=== PATIENT | male | born 1990 | race Caucasian/White ===

== ENCOUNTER 2023-03-06 16:40 | Emergency (ER) | payer MEDICAID ==
[2023-03-06 17:53] LABS: BASOPHILS ABSOLUTE AUTO 0.06 K/uL (0.00-0.10); BASOPHILS PERCENT AUTO 0.8 % (0.1-1.3); EOSINOPHILS ABSOLUTE AUTO 0.35 K/uL (0.00-0.40); EOSINOPHILS PERCENT AUTO 4.9 % (0.0-5.4); HEMATOCRIT 46.8 % (38.4-49.7); HEMOGLOBIN 16.7 g/dL (12.9-16.9); IMMATURE GRAN PERCENT AUTO 0.1 % (0.0-0.7); LYMPHOCYTES ABSOLUTE AUTO 3.36 K/uL (0.8-3.3); LYMPHOCYTES PERCENT AUTO 47.2 % (11.4-47.7); MEAN CORPUSCULAR HEMOGLOBIN 31.9 pg (31.6-35.5); MEAN CORPUSCULAR HGB CONC 35.7 g/dL (31.6-35.5); MEAN CORPUSCULAR VOLUME 89.5 fL (81.4-99.0); MONOCYTES ABSOLUTE AUTO 0.62 K/uL (0.20-0.90); MONOCYTES PERCENT AUTO 8.7 % (3.3-12.6); NEUTROPHILS ABSOLUTE AUTO 2.72 K/uL (1.0-7.6); NEUTROPHILS PERCENT AUTO 38.3 % (40.0-78.1); PLATELET COUNT,PLT 179 K/uL (130-375); RED BLOOD CELL COUNT 5.23 M/uL (4.14-5.76); WHITE BLOOD CELL COUNT,WBC 7.1 K/uL (3.2-11.0)
[2023-03-06 17:55] LABS: IMMATURE GRAN ABSOLUTE AUTO 0.01 K/uL (0.00-0.23)
[2023-03-06 18:13] LABS: ALANINE AMINOTRANSFERASE,ALT 72 U/L (12-78); ALKALINE PHOSPHATASE 52 U/L (46-116); ANION GAP 9.2 mmol/L (5.0-14.0); ASPARTATE AMNIOTRANSFERASE,AST 48 U/L (15-37); BILIRUBIN TOTAL 0.6 mg/dL (0.2-1.0); BLOOD UREA NITROGEN,BUN 16 mg/dL (7-18); CALCIUM 9.1 mg/dL (8.5-10.1); CARBON DIOXIDE,CO2 31 mmol/L (21-32); CHLORIDE,CL 101 mmol/L (100-108); ESTIMATED GFR 103 mL/min (>60); GLUCOSE RANDOM 92 mg/dL (74-106); SODIUM,NA 141 mmol/L (140-148)
[2023-03-06] MEDS: Sodium Chloride 0.9% 80 ML IV SCH (18:29)
[2023-03-06] MEDS: Sodium Chloride 0.9% 10 ML Syringe FLUSH ONE (18:29)
[2023-03-06] MEDS: Iopamidol 612 MG/ML 100 ML Bottle IV SCH (18:29)
[2023-03-06 18:41] LABS: APPEARANCE,URINE CLEAR (CLEAR); BILIRUBIN,URINE NEGATIVE (NEGATIVE); COLOR,URINE YELLOW (YELLOW); GLUCOSE,URINE NEGATIVE (NEGATIVE); KETONES,URINE TRACE mg/dL (NEGATIVE); LEUKOCYTE ESTERASE,URINE NEGATIVE (NEGATIVE); NITRITE,URINE NEGATIVE (NEGATIVE); OCCULT BLOOD,URINE NEGATIVE (NEGATIVE); PH,URINE 6.5 (5.0-8.0); PROTEIN,URINE NEGATIVE (NEGATIVE)
[2023-03-06 18:47] LABS: AMORPHOUS SEDIMENT,URINE NOT SEEN; BACTERIA,URINE NOT SEEN; EPITHELIAL CELLS,URINE RARE; MUCUS,URINE FEW; RBC,URINE 0-5 (0-5); WBC,URINE 0-5 (0-5)
[2023-03-06 18:48] LABS: AMPHETAMINES SCREEN, URINE NEGATIVE (NEGATIVE); BARBITURATE SCREEN,URINE NEGATIVE (NEGATIVE); BENZODIAZEPINES SCREEN,URINE NEGATIVE (NEGATIVE); METHADONE SCREEN, URINE NEGATIVE (NEGATIVE); METHAMPHETAMINES SCREEN, URINE NEGATIVE (NEGATIVE); OXYCODONE SCREEN,URINE NEGATIVE (NEGATIVE); PROPOXYPHENE SCREEN,URINE NEGATIVE (NEGATIVE); THC SCREEN,URINE 50 NG/ML PRESUMPTIVE POSITIVE (NEGATIVE)
[2023-03-06] MEDS: Amoxicillin/Clavulanate K 875-125 MG Tab PO ONE (19:38)
== END 2023-03-06 19:50 | disposition home or self-care (01) ==
LOC: JP.ED 16:40
DX: R10.9 Unspecified abdominal pain (principal); F17.210 Nicotine dependence, cigarettes, uncomplicated
CPT/HCPCS: 36415; 74177; 80053; 80305; 80307; 81001; 83605; 83690; 85025; 99284; A9270; J3490; Q9967

== ENCOUNTER 2023-03-07 09:40 | Day surgery (SDC) | payer MEDICAID ==
[2023-03-07] MEDS: Sodium Chloride 0.9% 1,000 ML IV SCH (10:43)
[2023-03-07] MEDS ORDERED: Glycopyrrolate 0.2 MG/ML 5 ML MDV ONE (12:02)
[2023-03-07] MEDS ORDERED: Ondansetron 4 MG/2 ML SDV ONE (12:02)
[2023-03-07] MEDS ORDERED: Rocuronium 50 MG/5 ML Vial ONE (12:02)
[2023-03-07] MEDS ORDERED: Propofol 200 MG/20 ML SDV ONE (12:02)
[2023-03-07] MEDS ORDERED: Succinylcholine 200 MG/10 ML MDV ONE (12:02)
[2023-03-07] MEDS ORDERED: fentaNYL 250 MCG/5 ML SDV ONE (12:02)
[2023-03-07] MEDS ORDERED: Dexamethasone 4 MG/ML SDV ONE (12:02)
[2023-03-07] MEDS ORDERED: Neostigmine Methylsulfate 10 MG/10 ML MDV ONE (12:02)
[2023-03-07] MEDS: ceFAZolin 2 GM in Premix Bag 1 BAG IV ONE (12:10)
[2023-03-07] MEDS: metroNIDAZOLE/Normal Saline 500 MG in Premix Bag 1 BAG IV ONE (12:25)
[2023-03-07] MEDS ORDERED: Sugammadex Sodium 200 MG/2 ML VIAL ONE (12:57)
[2023-03-07] MEDS: Bupivacaine 0.5%/EPINEPHrine 1:200,000 50 ML MDV ONE (13:33)
[2023-03-07] MEDS: Ropivacaine 30 ML, dexAMETHasone 8 MG, EPINEPHrine 0.4 MG, Sodium Chloride 0.9% 47.6 ML NERVRT SCH ×4 (13:44)
[2023-03-07] MEDS: Acetaminophen/HYDROcodone 325-5 MG Tab PO ONE (14:29)
[2023-03-09 17:54] LABS: HEPATITIS B SURFACE ANTIBODY 249.62 IU/L
[2023-03-09 21:20] LABS: HEPATITIS C AB CIA INTERP High Pos (Negative); HEPATITIS C ANTIBODY CIA INDEX >11.00 IV
[2023-03-10 17:26] LABS: HCV QNT BY NAAT (LOG IU/ML) 6.92 log IU/mL; HCV QNT BY NAAT INTERP Detected (Not Detected)
== END 2023-03-07 15:00 | disposition home or self-care (01) ==
LOC: JP.SDS 09:40
PROVIDERS: ATTEND Surgery
DX: C18.1 Malignant neoplasm of appendix (principal); F90.9 Attention-deficit hyperactivity disorder, unspecified type; F17.210 Nicotine dependence, cigarettes, uncomplicated
CPT/HCPCS: 36415; 44970; 64486; 64488; 86706; 86803; 87449; 87522; A9270; J0171; J0330; J0690; J1100; J1836; J2405; J2704; J2710; J2795; J3010; J3490; J7030; 88304; 88305; 88313; 88342

== ENCOUNTER 2023-08-24 17:02 | Emergency (ER) | payer MEDICAID ==
[2023-08-24] MEDS: Lidocaine 1% with EPINEPHrine 1:100,000 20 ML MDV INJECT ONE (17:59)
== END 2023-08-24 18:19 | disposition home or self-care (01) ==
LOC: JP.ED 17:02
DX: S61.215A Laceration without foreign body of left ring finger without damage to nail, initial encounter (principal); X58.XXXA Exposure to other specified factors, initial encounter
CPT/HCPCS: 12001; 99282